=== PATIENT | male | born 1975 | race Caucasian/White ===

== ENCOUNTER 2018-06-15 14:05 | Emergency (ER) | payer MEDICAID ==
[~2018-06-15] VITALS: Ht 165.1 cm; Wt 73.1 kg
[2018-06-15 14:11] VITALS: Ht 165.1 cm; Wt 73.1 kg
[2018-06-15 15:42] VITALS: BP 133/80
== END 2018-06-15 15:42 | disposition home or self-care (01) ==
LOC: ED 14:05
DX: J20.9 Acute bronchitis, unspecified (principal)
CPT/HCPCS: J1885

== ENCOUNTER 2018-08-11 19:21 | Emergency (ER) | payer MEDICAID ==
[~2018-08-11] VITALS: Ht 165.1 cm; Wt 74.0 kg
[2018-08-11 20:22] VITALS: Ht 165.1 cm; Wt 74.0 kg
[2018-08-11 22:24] VITALS: BP 130/76
== END 2018-08-11 22:24 | disposition home or self-care (01) ==
LOC: ED 19:21
DX: S22.31XA Fracture of one rib, right side, initial encounter for closed fracture (principal); W01.0XXA Fall on same level from slipping, tripping and stumbling without subsequent striking against object, initial encounter; Y93.9 Activity, unspecified; Y92.89 Other specified places as the place of occurrence of the external cause; Y99.8 Other external cause status

== ENCOUNTER 2019-03-03 04:16 | Emergency (ER) | payer MEDICAID ==
[~2019-03-03] VITALS: Ht 162.6 cm; Wt 69.9 kg
[2019-03-03 04:19] VITALS: Ht 162.6 cm; Wt 69.9 kg
[2019-03-03 05:23] VITALS: BP 128/77
== END 2019-03-03 05:23 | disposition home or self-care (01) ==
LOC: ED 04:16
DX: S46.911A Strain of unspecified muscle, fascia and tendon at shoulder and upper arm level, right arm, initial encounter (principal); W01.0XXA Fall on same level from slipping, tripping and stumbling without subsequent striking against object, initial encounter; Y93.89 Activity, other specified; Y92.89 Other specified places as the place of occurrence of the external cause; Y99.8 Other external cause status